=== PATIENT | female | born 2000 | race African-American/Black ===

== ENCOUNTER 2021-12-06 18:19 | Emergency (ER) | payer OTHER | END 2021-12-06 20:10 | disposition home or self-care (01) | LOC: CSHERS 18:19 | DX: R07.89 Other chest pain (principal); V89.2XXA Person injured in unspecified motor-vehicle accident, traffic, initial encounter; F17.290 Nicotine dependence, other tobacco product, uncomplicated | CPT/HCPCS: 71045; 93005 ==

== ENCOUNTER 2023-02-02 16:04 | Inpatient (IN) | payer MEDICAID, SELFPAY ==
[2023-02-02] MEDS ORDERED: Magnesium Sulfate 20 gm/500 ml 20 GM/500 ML BAG ONE (16:08)
[2023-02-02] MEDS ORDERED: Oxytocin 30 units/NS 500 ML 500 ML ONE (16:08)
[2023-02-02] MEDS ORDERED: Boostrix 0.5 ML (Tdap) VIAL (>/=7 yrs of age) IM ONE (16:09)
[2023-02-02] MEDS ORDERED: Milk Of Magnesia 30 ML UDCUP PO PRN (16:09)
[2023-02-02] MEDS ORDERED: Ondansetron PF 4 MG/2 ML Vial IVP PRN (16:09)
[2023-02-02] MEDS ORDERED: hydrALAZINE 20 MG/ML VIAL SLOW IVP PRN ×2 (16:09)
[2023-02-02] MEDS ORDERED: Bisacodyl 10 MG SUPP PR PRN (16:09)
[2023-02-02] MEDS ORDERED: Promethazine HCl 25 MG/ML VIAL IM PRN (16:09)
[2023-02-02] MEDS ORDERED: Benzocaine-Menthol 82.5 ML CAN TOP PRN (16:10)
[2023-02-02] MEDS ORDERED: Lanolin Ointment 7 GM TUBE TOP PRN (16:10)
[2023-02-02] MEDS ORDERED: Carboprost 250 MCG/ML AMP IM PRN (16:10)
[2023-02-02] MEDS ORDERED: Diphenoxylate HCl/Atropine Tablet PO PRN (16:10)
[2023-02-02] MEDS ORDERED: Methylergonovine 0.2 MG/ML VIAL IM PRN (16:10)
[2023-02-02] MEDS ORDERED: Misoprostol 200 MCG TAB PR PRN (16:10)
[2023-02-02] MEDS ORDERED: Tranexamic Acid 1,000 MG/10 ML VIAL IVP PRN (16:10)
[2023-02-02] MEDS ORDERED: Oxytocin 30 units/NS 500 ML 500 ML IV SCH ×2 (16:15)
[2023-02-02 16:48] VITALS: BMI 26.6
[2023-02-02] MEDS: Ibuprofen 800 MG TAB PO PRN (17:14)
[2023-02-02 17:17] LABS: ALT (SGPT) 8 U/L (8-55); AST (SGOT) 20 U/L (5-34); Albumin 3.5 g/dL (3.5-5.0); Alkaline Phosphatase 200 U/L (40-110); Anion Gap 17 mmol/L (10-20); BUN (Urea Nitrogen) 7 mg/dL (7.0-18.7); Bilirubin, Total 0.2 mg/dL (0.2-1.2); Calc. Creatinine Clearance 148 mL/min (70-130); Calcium 8.2 mg/dL (7.8-10.44); Carbon Dioxide 14 mmol/L (22-29); Chloride 107 mmol/L (98-107); Estimated GFR 127; Globulin 3.6 g/dL (2.4-3.5); Glucose 91 mg/dL (70-105); Potassium 3.5 mmol/L (3.5-5.1); Protein, Total 7.1 g/dL (6.0-8.3); Sodium 134 mmol/L (136-145)
[2023-02-02 17:25] LABS: Hematocrit 37.1 % (34.9-44.5); Mean Corpuscular Hemoglobin 30.4 pg (27.0-33.0); Mean Corpuscular Volume 86.7 fl (81.6-98.3); Platelet Count 172 10x3/uL (150-450); RBC Distribution Width 14.3 % (11.5-14.5); Red Blood Cell (RBC) Count 4.28 10x6/uL (3.90-5.03); White Blood Cell (WBC) Count 16.3 10x3/uL (3.5-10.5)
[2023-02-02 17:36] LABS: Hep B Surf Ag - L&D Non-Reactive S/CO (NonReactive)
[2023-02-02 17:38] LABS: Syphilis Antibody Nonreactive (Nonreactive); Syphilis Antibody Index 0.06 S/CO (<1.00 Non-Reactive)
[2023-02-02 17:53] LABS: Amphetamine Not Detected (NotDetected); Barbiturates Screen Not Detected (NotDetected); Benzodiazepine Screen Not Detected (NotDetected); Cocaine Metabolite Screen Not Detected (NotDetected); Methadone Not Detected (NotDetected); Methamphetamine Not Detected (NotDetected); Opiate Screen Not Detected (NotDetected); Oxycodone Screen Not Detected (NotDetected); Phencyclidine (PCP) Not Detected (NotDetected); THC/Cannabinoid Screen Detected (NotDetected); Tricyclic Screen Not Detected (NotDetected)
[2023-02-02 20:57] LABS: HIV (1/2) Antibody/Antigen Non-Reactive (NonReactive); HIV 1/2 INDEX 0.24 S/CO (<1.00)
[2023-02-03] MEDS ORDERED: Magnesium Sulfate 20 gm/500 ml 20 GM/500 ML BAG ONE (01:00)
[2023-02-03] MEDS: Ferrous Sulfate 325 MG TAB PO SCH ×3 (01:02→19:14)
[2023-02-03] MEDS: Lactated Ringer's 1,000 ML IV SCH (01:02)
[2023-02-03] MEDS: Docusate 100 MG CAP PO SCH ×3 (01:03→20:54)
[2023-02-03] MEDS: Ibuprofen 800 MG TAB PO PRN ×3 (01:06→23:33)
[2023-02-03] MEDS ORDERED: Lorazepam 2 MG/ML VIAL SLOW IVP PRN (01:45)
[2023-02-03] MEDS ORDERED: Calcium Gluc 4.6 MEQ/10 ML (100 MG/ML) SLOW IVP PRN (01:45)
[2023-02-03] MEDS ORDERED: Magnesium Sulfate 20 gm/500 ml 20 GM/500 ML BAG IVPB SCH (02:00)
[2023-02-03 08:10] LABS: Magnesium 6.5 mg/dL (1.6-2.6)
[2023-02-03] MEDS: Prenatal Vitamin 1 TAB PO SCH (09:22)
[2023-02-04] MEDS: Ferrous Sulfate 325 MG TAB PO SCH (07:11)
[2023-02-04] MEDS: Lactated Ringer's 1,000 ML IV SCH (07:13)
[2023-02-04] MEDS: NIFEdipine XL 30 MG ER.TAB PO SCH (08:06)
[2023-02-04] MEDS: Docusate 100 MG CAP PO SCH ×2 (08:06→21:20)
[2023-02-04] MEDS: Acetaminophen 325 MG TAB PO SCH ×3 (08:06→20:21)
[2023-02-04] MEDS: Prenatal Vitamin 1 TAB PO SCH (08:06)
[2023-02-04] MEDS: Ibuprofen 800 MG TAB PO PRN ×2 (08:06→16:31)
[2023-02-05] MEDS: Acetaminophen 325 MG TAB PO SCH ×2 (03:38→09:36)
[2023-02-05] MEDS: Ferrous Sulfate 325 MG TAB PO SCH (07:06)
[2023-02-05 07:35] VITALS: BP 132/72; TEMP 98.1
[2023-02-05] MEDS: Prenatal Vitamin 1 TAB PO SCH (09:36)
[2023-02-05] MEDS: NIFEdipine XL 30 MG ER.TAB PO SCH (09:36)
[2023-02-05] MEDS: Docusate 100 MG CAP PO SCH (09:36)
== END 2023-02-05 10:00 | disposition home or self-care (01) | DRG 807 ==
LOC: CSHLD 16:04 → CSHANTE 02-03 09:00
PROVIDERS: ADMIT Obstetrics & Gynecology; ATTEND Obstetrics & Gynecology
PROC: 10E0XZZ Delivery of Products of Conception, External Approach (ICD-10-PCS; principal; 2023-02-02)
DX: O11.4 Pre-existing hypertension with pre-eclampsia, complicating childbirth (principal); Z37.0 Single live birth; O62.3 Precipitate labor; Z3A.28 28 weeks gestation of pregnancy
CPT/HCPCS: 36415; 51702; 80053; 80306; 83735; 85027; 86780; 86850; 86900; 86901; 87340; 87389; 88307; 99285; J2590; J3475